=== PATIENT | male | born 1995 | race Caucasian/White ===

== ENCOUNTER 2022-06-07 16:22 | Emergency (ER) | payer OTHER ==
[~2022-06-07] VITALS: Ht 165.1 cm; Wt 96.0 kg
[2022-06-07 17:24] VITALS: BP 118/83
[2022-06-07] MEDS ORDERED: ACETAMINOPHEN 325MG TABLET PO ONE (21:30)
[2022-06-07] MEDS ORDERED: METHOCARBAMOL 500MG TABLET PO ONE (21:30)
[2022-06-07] MEDS ORDERED: TOPUD MT (21:34)
== END 2022-06-07 21:55 | disposition home or self-care (01) ==
LOC: ER 16:22
DX: M54.9 Dorsalgia, unspecified (principal); V49.40XA Driver injured in collision with unspecified motor vehicles in traffic accident, initial encounter; Y93.89 Activity, other specified; Y92.89 Other specified places as the place of occurrence of the external cause; Y99.8 Other external cause status
CPT/HCPCS: 99283

== ENCOUNTER 2022-07-12 00:13 | Emergency (ER) | payer MEDICAID ==
[~2022-07-12] VITALS: Ht 167.6 cm; Wt 91.0 kg
[~2022-07-12 00:13] MED LIST: TOPUD MT
[2022-07-12 00:33] VITALS: BP_DIAS 97
[2022-07-12] MEDS ORDERED: OXYM30SP26 BOTHNSTRLS (02:32)
[2022-07-12 02:50] VITALS: BP_SYST 78
== END 2022-07-12 02:50 | disposition home or self-care (01) ==
LOC: ER 00:13
DX: R04.0 Epistaxis (principal)
CPT/HCPCS: 99281